=== PATIENT | male | born 1975 | race Caucasian/White ===

== ENCOUNTER 2020-02-27 14:45 | Outpatient (CLI) | payer OTHER, SELFPAY ==
--- NOTE | ~2020-02-27 | MR_ITS ---
EXAMINATION: MR lumbar spine wo con DATE: 02/27/2020 15:19 INDICATION: Lumbago with sciatica, left side. TECHNIQUE: Magnetic resonance imaging (MRI) of the lumbar spine was performed without intravenous con trast. Sequences included sagittal T2-weighted FSE, sagittal T2-weighted FS FSE, sagittal T1-weighted FSE, and axial T2-weighted FSE. COMPARISON: None FINDINGS: Bone alignment is normal. There are Schmorl's nodes at T11-T12, T12-L1, and L2-L3. Interver tebral disc heights are normal. The distal spinal cord signal intensity is normal. The conus medullar is is at T12-L1. The following disc levels are specifically discussed: L1-L2: The disc does not extend beyond the endplate margin. There is moderate right and mild left fac et joint osteoarthritis. There is no neural foraminal stenosis. There is no central canal stenosis. L2-L3: The disc is mildly bulging. There is mild bilateral facet joint osteoarthritis. There is mild bilateral neural foraminal stenosis. There is mild central canal stenosis. L3-L4: The disc is bulging and has an annular fissure. There is mild bilateral facet joint osteoarthr itis. There is mild right and moderate left neural foraminal stenosis. There is mild central canal st enosis. L4-L5: The disc is bulging. There is mild bilateral facet joint osteoarthritis. There is moderate elizabeth ateral neural foraminal stenosis. There is mild central canal stenosis. L5-S1: The disc does not extend beyond the endplate margin. There is moderate bilateral facet joint o steoarthritis. There is mild right neural foraminal stenosis. There is no central canal stenosis. IMPRESSION: 1. Moderate lumbar spondylosis. Reviewed, dictated and finalized at location A.
== END 2020-02-27 14:46 ==
PROVIDERS: PCP Emergency Medicine; Visit Provider Emergency Medicine
DX: M54.42 Lumbago with sciatica, left side (principal); M47.896 Other spondylosis, lumbar region
CPT/HCPCS: 72148

== ENCOUNTER 2020-05-14 10:08 | Outpatient (NON) | payer OTHER, SELFPAY ==
[2020-05-14 21:13] LABS: SARS-CoV-2 RNA PCR Positive
== END 2020-05-14 10:09 ==
PROVIDERS: PCP Emergency Medicine; Visit Provider Emergency Medicine
DX: U07.1 COVID-19 (principal)
CPT/HCPCS: 87635; C9803; U0003